=== PATIENT | male | born 1985 | race Two or more races ===

== ENCOUNTER 2024-12-24 08:01 | Emergency (ER) | payer OTHER ==
[~2024-12-24] VITALS: Ht 177.8 cm; Wt 80.7 kg
[~2024-12-24 08:01] MED LIST: KETO10TA2 PO; TAMS0.4C PO
[2024-12-24] MEDS ORDERED: ROSUVASTATIN CAL5 MG PO (08:08)
[2024-12-24 08:09] VITALS: BP 137/78; O2SAT 96
[2024-12-24] MEDS ORDERED: FENOFIBRATE50 MG PO (08:09)
[2024-12-24] MEDS ORDERED: LEVALBUTEROL HCL 1.25 MG/3 ML SOLUTION IH STA (08:43)
[2024-12-24] MEDS ORDERED: HYDROCODONE/CHLORPHEN P-STIREX 5 ML ML PO STA (08:44)
[2024-12-24] MEDS ORDERED: LEVALBUTEROL HCL 1.25 MG/3 ML SOLUTION IH ONE (09:20)
[2024-12-24 09:36] LABS: HEMATOCRIT 41.6 % (39.0-48.0); HEMOGLOBIN 14.2 g/dL (13-16.00); MEAN CELL VOLUME 86.7 fL (80.0-100.00); MEAN CORPUSCULAR HEMOGLOBIN 29.6 pg (27.00-32.0); MEAN CORPUSCULAR HGB CONC 34.2 g/dl (32.0-36.0); PLATELET COUNT 288 K/uL (150-450); RED BLOOD COUNT 4.79 M/uL (4.00-6.00); RED CELL DISTRIBUTION WIDTH 13.3 % (11.5-14.5)
[2024-12-24 10:29] LABS: CALCIUM 9.5 mg/dL (8.5-10.1); CREATININE SERUM 0.97 mg/dL (0.70-1.30); GFR 86.16; POTASSIUM 3.55 mEq/L (3.5-5.1)
== END 2024-12-24 11:05 | disposition home or self-care (01) ==
LOC: ER 08:03
PROVIDERS: General Practice
DX: R04.2 Hemoptysis (principal)